=== PATIENT | female | born 1995 | race Caucasian/White ===

== ENCOUNTER → 2018-07-25 15:42 | Outpatient (CLI) | payer BC, SELFPAY ==
[2018-07-25 17:51] LABS: Chlamydia Trachomatis by PCR Negative (Negative); Neisserai gonorrhoeae by PCR Negative (Negative); Probe Check PASS; Sample Adequacy Control PASS; Specimen Processing Control PASS
== END ==
PROVIDERS: Family Provider Preventive Medicine Occupational Medicine; PCP Preventive Medicine Occupational Medicine; Referring Provider Nurse Practitioner Women's Health; Visit Provider Nurse Practitioner Women's Health
DX: Z11.3 Encounter for screening for infections with a predominantly sexual mode of transmission (principal)
CPT/HCPCS: 87491; 87591

== ENCOUNTER 2019-08-19 05:34 | Emergency (ER) | payer BC, SELFPAY ==
[2019-08-19 05:35] VITALS: BP 165/94; PULSE 76; RESP 15; TEMP 36.5; O2SAT 100; BMI 30.1
--- NOTE | 2019-08-19 05:35 | ED.RN ---
CALLED FOR EKG PER RN REQUEST, PULLED OLD EKG FOR
--- NOTE | 2019-08-19 05:46 | EKG12_ITS ---
Test Reason : CP Blood Pressure : / mmHG Vent. Rate : 074 BPM Atrial Rate : 074 BPM P-R Int : 148 ms QRS Dur : 098 ms QT Int : 404 ms P-R-T Axes : 037 051 025 degrees QTc Int : 448 ms Normal sinus rhythm Normal ECG Confirmed by GEOR[place] FERNANDEZ, LION ([id number]), mapping editor IDALMIS HAINES ([id number]) on 08/26/2019 2:02:00 PM Referred By: FIDEL Confirmed By:LION HO MD
--- NOTE | 2019-08-19 05:46 | RAD_ITS ---
STUDY: X-RAY CHEST REASON FOR EXAM: Female, 23 years old. Chest pain TECHNIQUE: PA and lateral chest COMPARISON: 08/27/2017 FINDINGS: The lungs are clear and expanded. There is no demonstrated pleural abnormality. Normal size heart. Normal mediastinum and itzel. Normal visualized pulmonary arteries. Normal visualized aortic arch and descending thoracic aorta. Normal visualized thoracic spine. Normal visualized ribs, clavicles, and shoulders. There is no demonstrated abnormality of the visualized soft tissue structures of the upper abdomen. RAD/Chest PA and Lateral IMPRESSION: Normal x-ray examination of the chest. Electronically Signed: Salvador Vazquez, at 6:09 EST Tel , Service support ,
--- NOTE | 2019-08-19 05:46 | ED.VIS.GEN ---
History of Present Illness Chief Complaint: Chest Pain Narrative: This patient is a 23-year-old female who presents with chest pain. This is been going on about 2 hours. It began while at rest at work. She describes it as both sharp and feeling like something is sitting on her chest. It is in the center of the chest with radiation to her back. No exacerbating or relieving factors. She denies associated symptoms such as dizziness nausea vomiting or shortness of breath. She denies recent travel or surgery. No history of DVT or pulmonary embolism. She is not on control. She is not a smoker. She actually has had multiple prior episodes of similar pain with negative work-ups. Past Medical History - Allergies and Home Meds Allergies/Adverse Reactions: Allergies mupirocin Allergy (Mild, Verified 08/19/19 05:38) unknown OINTMENT FOR IMPETIGO Allergy (Uncoded 08/19/19 05:38) Hives Primary Care Physician: NOT,DEFINED [NON-STAFF] - Past Medical History: None Smoking Status: Former smoker Review of Systems All systems negative except as indicated General: Denies: Fever Cardiovascular: Reports: Chest pain Respiratory: Denies: Dyspnea Gastrointestinal: Denies: Nausea, Vomiting Physical Exam Vital Signs/Narrative: Vital Signs Temp Pulse Resp BP Pulse Ox 08/19/19 05:35 97.7 F L 76 15 165/94 H 100 Inital Vital Signs reviewed: Yes General: Well nourished, Well developed Head: Normocephalic Eyes: EOMI ENT: Moist mucous membranes Neck: Supple Cardiovascular: Regular rate, Regular rhythm, - - Palpable radial pulses Respiratory: No distress, CTA bilaterally Abdomen: Soft, Nontender Extremities: Nontender, No edema Skin: Normal color Neurological: Alert Psychological: Normal affect Diagnostic/Tx/Re-eval Impressions Chest X-Ray 08/19/19 05:46 IMPRESSION: Normal x-ray examination of the chest. Electronically Signed: Salvador Vazquez, at 6:09 EST Tel , Service support , 08/19/19 05:46 Chest PA and Lateral [RAD] Stat Laboratory Results 08/19/19 08/19/19 08/19/19 05:40 05:40 05:40 WBC 10.0 RBC 4.12 L Hgb 12.3 Hct 36.2 L MCV 87.9 MCH 29.9 MCHC 34.0 RDW Std Deviation 41.0 RDW Coeff of Joanie 12.7 Plt Count 349 MPV 10.1 Immature Gran % (Auto) 0.200 Neut % (Auto) 49.2 Lymph % (Auto) 41.0 [place] % (Auto) 7.2 Eos % (Auto) 1.8 Baso % (Auto) 0.6 Absolute Neuts (auto) 4.9 Absolute Lymphs (auto) 4.10 Nucleated RBC % 0 PT 12.8 INR 1.0 D-Dimer Quant (PE/DVT) < 0.27 L Sodium 140 Potassium 3.4 L Chloride 106 Carbon Dioxide 27.0 Anion Gap 7 BUN 14 Creatinine 0.87 Estim Creat Clear Calc 78.86 Est GFR (MDRD) Af Amer 102 Est GFR (MDRD) Non-Af 84 BUN/Creatinine Ratio 16.1 Glucose 91 Calcium 8.9 Troponin I < 0.015 - Medical Decision Making EKG shows normal sinus rhythm at a rate of 74 with no acute ischemic changes. Labs are unremarkable including negative troponin negative d-dimer. Given the patient's history of multiple prior similar episodes as well as unremarkable work-up here I do not believe she has any acute life-threatening pathology. I do believe she can follow-up as an outpatient. She understands to return for new or worsening symptoms and was discharged home. ED Disposition - Plan for ED Patient: Disposition: Home or Assisted Living Diagnosis: Chest pain Instructions: CHEST PAIN, Uncertain Cause Referrals: NOT,DEFINED [NON-STAFF] -
[2019-08-19 05:54] LABS: Absolute Neutrophil Count 4.9 X10^3/uL (2.0-7.7); Basophil# 0.06 X10^3/uL; Basophil% 0.6 % (0-1); Eosinophil# 0.18 X10^3/uL; Eosinophils% 1.8 % (0-5); Hematocrit 36.2 % (37-47); Hemoglobin 12.3 g/dL (12.0-15.0); Mean Corpuscular Hgb 29.9 pg (27.0-32.0); Mean Corpuscular Volume 87.9 fL (81-99); Mean Platelet Vol. 10.1 fl (6.2-12.0); Monocyte# 0.72 X10^3/uL; Monocyte% 7.2 % (0-10); NRBC Flagged by Analyzer 0 % (0-5); Neutrophil # 4.91 X10^3/uL (2.7-7.7); Neutrophil % 49.2 % (47-70); Platelet Count 349 K/mm3 (150-450); RBC Distribution Width CV 12.7 % (11.6-14.6); Red Blood Count 4.12 M/mm3 (4.2-5.4)
[2019-08-19 05:59] LABS: Prothrombin Time (Protime)PT. 12.8 SECONDS (11.7-14.9)
[2019-08-19 06:03] LABS: D-Dimer Quantitative (DVT/PE) < 0.27 FEU/ug/m (0.27-0.49)
[2019-08-19 06:06] LABS: Anion Gap 7 (5-15); BUN 14 mg/dL (7-18); BUN/Creat Ratio 16.1 RATIO (10-20); Calcium,Total 8.9 mg/dL (8.5-10.1); Chloride 106 mmol/L (98-107); Creatinine, Serum 0.87 mg/dL (0.55-1.02); EST Glomerular Filtration Rate 84 mL/min (>60); Est Glom Filt Rate - Afr Amer 102 mL/min (>60); Estimated Creatinine Clearance 78.86 ml/min; Glucose 91 mg/dL (74-106); Potassium 3.4 mmol/L (3.5-5.1); Sodium Level 140 mmol/L (136-145)
[2019-08-19 06:51] VITALS: BP 113/71; PULSE 50; RESP 14; O2SAT 100
== END 2019-08-19 06:52 | disposition home or self-care (01) ==
PROVIDERS: Emergency Provider Emergency Medicine
DX: R07.9 Chest pain, unspecified (principal); Z87.891 Personal history of nicotine dependence
CPT/HCPCS: 71046; 80048; 84484; 85025; 85379; 85610; 93005; 99284; A4216

== ENCOUNTER 2020-05-28 00:45 | Emergency (ER) | payer BC, SELFPAY ==
[2020-05-28 00:50] VITALS: BP 135/90; PULSE 108; RESP 20; TEMP 37; O2SAT 100; BMI 30.2
--- NOTE | 2020-05-28 01:34 | EKG12_ITS ---
Test Reason : CP Blood Pressure : / mmHG Vent. Rate : 103 BPM Atrial Rate : 103 BPM P-R Int : 192 ms QRS Dur : 090 ms QT Int : 344 ms P-R-T Axes : 045 048 016 degrees QTc Int : 450 ms Sinus tachycardia Otherwise normal ECG Confirmed by MATHEW HURTADO ([id number]), avid editor IDALMIS HAINES ([id number]) on 05/31/2020 2:09:56 PM Referred By: CG Confirmed By:MATHEW HURTADO
[2020-05-28 01:40] LABS: Absolute Lymphocyte Count 3.91 X10^3/uL (0.83-4.51); Absolute Neutrophil Count 6.5 X10^3/uL (2.0-7.7); Basophil# 0.06 X10^3/uL; Basophil% 0.5 % (0-1); Eosinophil# 0.18 X10^3/uL; Eosinophils% 1.6 % (0-5); Hematocrit 38.4 % (37-47); Hemoglobin 13.1 g/dL (12.0-15.0); Lymphocyte # 3.91 X10^3/ul (4.0); Mean Corp Hgb Conc 34.1 g/dL (32-36); Mean Corpuscular Hgb 30.6 pg (27.0-32.0); Mean Corpuscular Volume 89.7 fL (81-99); Mean Platelet Vol. 10.1 fl (6.2-12.0); Monocyte# 0.79 X10^3/uL; Monocyte% 6.9 % (0-10); NRBC Flagged by Analyzer 0 % (0-5); Neutrophil # 6.52 X10^3/uL (2.7-7.7); Neutrophil % 56.7 % (47-70); Platelet Count 322 K/mm3 (150-450); RBC Distribution Width CV 12.8 % (11.6-14.6); RBC Distribution Width SD 41.7 fl (35.1-43.9); Red Blood Count 4.28 M/mm3 (4.2-5.4); White Blood Count 11.5 K/mm3 (4.4-11.0)
[2020-05-28] MEDS: 0.9% Normal Saline 1,000 ML 1000 ML IV (01:44)
[2020-05-28 01:49] LABS: D-Dimer Quantitative (DVT/PE) 0.33 FEU/ug/m (0.27-0.49)
[2020-05-28 01:52] VITALS: BP 118/75; PULSE 90; RESP 26; O2SAT 100
[2020-05-28 01:55] LABS: Anion Gap 5 (5-15); BUN 14 mg/dL (7-18); BUN/Creat Ratio 15.1 RATIO (10-20); Calcium,Total 8.9 mg/dL (8.5-10.1); Chloride 110 mmol/L (98-107); Creatinine, Serum 0.93 mg/dL (0.55-1.02); EST Glomerular Filtration Rate 78 mL/min (>60); Est Glom Filt Rate - Afr Amer 94 mL/min (>60); Estimated Creatinine Clearance 73.14 ml/min; Glucose 94 mg/dL (74-106); Potassium 3.3 mmol/L (3.5-5.1); Sodium Level 140 mmol/L (136-145)
--- NOTE | 2020-05-28 02:00 | RAD_ITS ---
STUDY: X-RAY CHEST REASON FOR EXAM: Female, 24 years old patient with chest pain and shortness of breath. TECHNIQUE: Single AP portable view of the chest. COMPARISON: 08/19/2019. FINDINGS: Cardiac monitoring leads are present. The lungs are clear and expanded. There is no demonstrated pleural abnormality. Normal size heart. Normal mediastinum and itzel. Normal visualized pulmonary arteries. Normal visualized aortic arch and descending thoracic aorta. Normal visualized thoracic spine. Normal visualized ribs, clavicles, and shoulders. There is no demonstrated abnormality of the visualized soft tissue structures of the upper abdomen. RAD/Chest 1 View (Portable) IMPRESSION: No radiographic evidence of acute cardiopulmonary disease. Electronically Signed: Eleonora Brandt MD at 2:17 EDT , Service support ,
--- NOTE | 2020-05-28 03:03 | ED.VIS.CHEST ---
History of Present Illness Chief Complaint: Chest Pain Informant: Patient Onset: Today Timing: Intermittent Quality: Sharp, Stabbing Location: Left Chest Worsened By: Nothing Narrative: Patient is a 24-year-old female that is currently being evaluated for episodes of lightheadedness presenting after episode of chest pain. Patient states she was at work when she was working at 2 different stations which is not normal for her and more stressful than normal. Suddenly developed an episode of sharp chest pain on the left side of her chest. It lasted for couple minutes and then resolved. During the episode she had associated shortness of breath. She states she had prior episodes in the past of the last one was about 3 to 4 years ago. At that time she was told she had she had a UTI. Currently denies any associated urinary symptoms. She states she is currently being evaluated by her PCP for episodes of lightheadedness/dizzy spells. Patient recently had a Holter monitor which she thinks was normal but does not recall the results. She was placed on Midodrine but it caused nausea and vomiting so she was taken off of it yesterday. Patient notes she was having some loose bowel movements today denies any black or blood in her stool. She denies any associated dysuria or urinary symptoms. Patient denies any swelling of her legs, history of DVT or PE. She states she does not think she is . Her last menstrual period was approximately 1 month ago. Prior Similar Symptoms: Yes CVD Risk Factors: Negative for: Hypertension, Diabetes, Hypercholesterolemia, Family History 1' </=55, Smoking PE Risk Factors: Negative for: Recent Travel/Surgery, Recenet Immobilization, Prior DVT or PE, Cancer, OCP + Smoking + >/=35 Past Medical History - Allergies and Home Meds Allergies/Adverse Reactions: Allergies mupirocin Allergy (Mild, Verified 05/28/20 00:47) unknown OINTMENT FOR IMPETIGO Allergy (Uncoded 05/28/20 00:47) Hives Primary Care Physician: Adrian Miranda DO [Primary Care Provider] - Past Medical History: None Surgical History: no surgical history Smoking Status: Never smoker Alcohol: None Drugs: None Review of Systems General: Denies: Chills, Fever, Sweats Eyes: Denies: Visual changes - bilaterally, Diplopia ENT: Denies: Rhinorrhea, Sore throat Cardiovascular: Reports: Chest pain. Denies: Palpitations Respiratory: Reports: Dyspnea. Denies: Cough, Dyspnea on exertion Gastrointestinal: Denies: Abdominal pain, Nausea, Vomiting, Diarrhea, Melena, Hematochezia Genitourinary: Reports: Frequency. Denies: Dysuria, Hematuria Musculoskeletal: Denies: Back pain, Extremity Pain Skin: Denies: Rash, Wounds Neurological: Denies: Headache, Weakness, Numbness Physical Exam Vital Signs/Narrative: Vital Signs Temp Pulse Resp BP Pulse Ox 05/28/20 01:52 90 26 H 118/75 100 05/28/20 00:50 98.6 F 108 H 20 H 135/90 H 100 Inital Vital Signs reviewed: Yes General: Well nourished, Well developed, No Acute Distress Head: Normocephalic, Atraumatic Eyes: Perrl, EOMI ENT: Moist mucous membranes, No rhinorrhea Neck: Supple, Nontender, No JVD Cardiovascular: Regular rate, Regular rhythm, No murmurs Respiratory: No distress, CTA bilaterally, Chest nontender. Negative for: Diminished, Decreased Air Movement, Chest tenderness Abdomen: Soft, Nontender, Nondistended, Normal bowel sounds. Negative for: Guarding, Rebound tenderness Back: Nontender, Normal Inspection. Negative for: CVA tenderness Extremities: Nontender, No edema Skin: Normal color, No rash Neurological: Alert, Oriented x3, Cranial nerves II-XII grossly intact, Normal Strength, Normal Sensation Psychological: Normal affect, Normal Mood Diagnostic/Tx/Re-eval Chest X-Ray - ED: 1 View, Read by ED Physician, Read by Radiologist, No Acute Disease Clinical Impression(s) from Imaging Studies Chest X-Ray 05/28/20 02:00 IMPRESSION: No radiographic evidence of acute cardiopulmonary disease. Electronically Signed: Eleonora Brandt MD at 2:17 EDT , Service support , Laboratory Data 05/28/20 05/28/20 05/28/20 01:04 01:04 01:04 WBC 11.5 H RBC 4.28 Hgb 13.1 Hct 38.4 MCV 89.7 MCH 30.6 MCHC 34.1 RDW Std Deviation 41.7 RDW Coeff of Joanie 12.8 Plt Count 322 MPV 10.1 Immature Gran % (Auto) 0.300 Neut % (Auto) 56.7 Lymph % (Auto) 34.0 [place] % (Auto) 6.9 Eos % (Auto) 1.6 Baso % (Auto) 0.5 Absolute Neuts (auto) 6.5 Absolute Lymphs (auto) 3.91 Nucleated RBC % 0 D-Dimer Quant (PE/DVT) 0.33 Sodium 140 Potassium 3.3 L Chloride 110 H Carbon Dioxide 25.0 Anion Gap 5 BUN 14 Creatinine 0.93 Estim Creat Clear Calc 73.14 Est GFR (MDRD) Af Amer 94 Est GFR (MDRD) Non-Af 78 BUN/Creatinine Ratio 15.1 Glucose 94 Calcium 8.9 Magnesium 2.0 Troponin I < 0.015 - Rhythm Strip Rhythm Strip: Sinus Tach Rate: 103 Ectopy: None - EKG Initial EKG Interpretation: Sinus Tachycardia, - - Sinus tachycardia at a rate of 103 Normal axis Normal intervals Normal ST segments Nonspecific T wave inversion in lead III JARET Risk: No Positive JARET Elements Score: 0 - Medical Decision Making Patient is evaluated after a transient episode of left-sided chest pain. She has associated shortness of breath with it. Patient symptom-free upon arrival to the emergency room. Patient peers nontoxic in no acute distress. Her vital signs are significant for mild tachycardia. Patient has no risk factors for DVT or PE. D-dimer obtained which is negative. I feel like she is low risk per Wells criteria and this effectively rules out a PE. Will remainder of work-up is largely negative including chest x-ray and BMP. Of note, I did order a urinalysis and urine but later in her ED course. Patient do not want a stay to give an urine sample. I did discuss with patient that she is low risk per heart score and has a 2% risk of ACS over the next 30 days. Patient does not want to stay for delta troponin. Patient's presentation is very atypical for cardiac chest pain and she is already a under evaluation for lightheaded episodes by her primary care doctor. She recently had a 48-hour Holter monitor and is working on getting an echocardiogram scheduled. Believe patient is a good candidate for outpatient follow-up. The exact cause of her episode of chest pain is not clear today however. Patient is counseled on signs and symptoms requiring return to the emergency room. Patient verbalizes agreement and understand this plan. Patient discharged home in stable and improved condition. ED Disposition - Plan for ED Patient: Disposition: Home or Assisted Living Diagnosis: Atypical chest pain Instructions: ED Chest Pain Atypical Unkn Cause Referrals: Adrian Miranda DO [Primary Care Provider] -
[2020-05-28 03:26] VITALS: BP 127/56; PULSE 81; RESP 18; O2SAT 96
--- NOTE | 2020-05-28 03:27 | ED.RN ---
PT WAS VERBALLY ABRASIVE WHEN ADVISED ABOUT THE NEED FOR URINE,WELL THE LADY SAID I WAS GOING HOME AND I'M READY. DID ADVISE THE DOCTOR OF THE ABOVE INFORMATION. SHE STATED THAT'S FINE SHE REFUSED. WAS DOING HER DISCHARGE AND ATTEMPTING TO GO OVER HER DISCHARGE PAPERS AND SHE SAID,'I ALREADY KNOW! PAPERS HANDED TO PT.
== END 2020-05-28 03:29 | disposition home or self-care (01) ==
PROVIDERS: Emergency Provider Emergency Medicine; PCP Student in an Organized Health Care Education/Training Program
DX: R07.89 Other chest pain (principal); R06.02 Shortness of breath; R42 Dizziness and giddiness; R35.0 Frequency of micturition
CPT/HCPCS: 71045; 80048; 83735; 84484; 85025; 85379; 93005; 96360; 96361; 99285; J7030; A4216

== ENCOUNTER 2020-06-10 23:36 | Emergency (ER) | payer BC, SELFPAY ==
[2020-06-10 23:37] VITALS: BP 138/77; PULSE 90; RESP 18; TEMP 36.2; O2SAT 99; BMI 29.2
[2020-06-11 00:02] VITALS: BP 119/60; PULSE 75; RESP 18; O2SAT 99
--- NOTE | 2020-06-11 00:19 | EKG12_ITS ---
Test Reason : DYSRHYTHMIA Blood Pressure : / mmHG Vent. Rate : 072 BPM Atrial Rate : 072 BPM P-R Int : 170 ms QRS Dur : 100 ms QT Int : 404 ms P-R-T Axes : 039 047 031 degrees QTc Int : 442 ms Normal sinus rhythm Normal ECG Confirmed by ROLANDO FERNANDEZ, JONG ([id number]), video tape editor VAL CATES ([id number]) on 06/15/2020 7:55:36 AM Referred By: BLAIRE Confirmed By:MICHAEL MARSHALL MD
--- NOTE | 2020-06-11 00:26 | ED.DCSUM_ITS ---
History of Present Illness Chief Complaint: Hypertension Informant: Patient Onset: Today Narrative: Patient came from work due to feeling dizzy lightheaded with elevated blood pressure. She has been at work for 4 hours she states she stands using the stapler, felt lightheaded, she checked her blood pressure was 144/89. She does take metoprolol for blood pressure. She denies chest pains or abdominal pain. No recent illness. No recent vomiting or diarrhea. No urinary symptoms. History of tubal ligation. Similar event 2 weeks ago seen in the ED. She states previously has had multiple episodes being worked up by her PCP. She has had a Holter monitor in the past along with echocardiogram. She states there is some valve regurgitations. She denies any syncopal episodes. Prior similar symptoms: Yes Past Medical History - Allergies and Home Meds Allergies/Adverse Reactions: Allergies mupirocin Allergy (Mild, Verified 06/10/20 23:39) unknown OINTMENT FOR IMPETIGO Allergy (Uncoded 06/10/20 23:39) Hives Primary Care Physician: Adrian Miranda DO [Primary Care Provider] - Past Medical History: - - Hypertension, anemia Surgical History: no surgical history Smoking Status: Former smoker Review of Systems General: Denies: Chills, Fever, Sweats Eyes: Denies: Visual changes - bilaterally, Diplopia ENT: Denies: Rhinorrhea, Sore throat Cardiovascular: Denies: Chest pain, Palpitations Respiratory: Denies: Dyspnea, Cough, Dyspnea on exertion Gastrointestinal: Denies: Abdominal pain, Nausea, Vomiting, Diarrhea, Melena, Hematochezia Genitourinary: Denies: Dysuria, Hematuria, Frequency Musculoskeletal: Denies: Back pain, Extremity Pain Skin: Denies: Rash, Wounds Neurological: Denies: Headache, Weakness, Numbness Physical Exam Vital Signs/Narrative: Vital Signs Temp Pulse Resp BP Pulse Ox 06/11/20 00:02 75 18 119/60 99 06/10/20 23:37 97.2 F L 90 18 138/77 H 99 Inital Vital Signs reviewed: Yes General: Well nourished, Well developed, No Acute Distress Head: Normocephalic, Atraumatic Eyes: Perrl, EOMI ENT: Moist mucous membranes, No rhinorrhea Neck: Supple, Nontender Cardiovascular: Regular rate, Regular rhythm, No murmurs Respiratory: No distress, CTA bilaterally, Chest nontender Abdomen: Soft, Nontender, Nondistended, Normal bowel sounds Back: Nontender, Normal Inspection Extremities: Nontender, No edema Skin: Normal color, No rash Neurological: Alert, Oriented x3, Cranial nerves II-XII grossly intact, Normal Strength, Normal Sensation Psychological: Normal affect, Normal Mood Diagnostic/Tx/Re-eval Abnormal Lab Results 06/11/20 06/11/20 06/11/20 00:35 00:35 00:35 WBC 9.9 RBC 4.06 L Hgb 12.4 Hct 36.5 L MCV 89.9 MCH 30.5 MCHC 34.0 RDW Std Deviation 41.0 RDW Coeff of Joanie 12.5 Plt Count 329 MPV 9.8 Immature Gran % (Auto) 0.200 Neut % (Auto) 65.4 Lymph % (Auto) 26.5 [place] % (Auto) 5.9 Eos % (Auto) 1.6 Baso % (Auto) 0.4 Absolute Neuts (auto) 6.5 Absolute Lymphs (auto) 2.63 Nucleated RBC % 0 Sodium 141 Potassium 3.5 Chloride 109 H Carbon Dioxide 27.0 Anion Gap 5 BUN 11 Creatinine 0.82 Estim Creat Clear Calc 82.95 Est GFR (MDRD) Af Amer 108 Est GFR (MDRD) Non-Af 90 BUN/Creatinine Ratio 13.4 Glucose 88 Calcium 8.8 Serum , Qual NEGATIVE - EKG Initial EKG Interpretation: Sinus Rhythm - Sinus rate of 72, no ST changes. Isolated T wave in leads III, nonspecific. QTc 442. - Medical Decision Making Patient EKG labs are stable. Her vitals remained stable blood pressure was stable in the ED. Evaluation of records she had chest symptoms her last visit evaluated which was negative including d-dimer. She has no PE risk factors. Since her last visit in the ED she is seen her doctor with the Holter and echocardiogram. Discussed followed up again for further testing or referral as needed. To continue oral hydration. She will return if any worsening symptoms. All questions were answered. ED Disposition - Plan for ED Patient: Disposition: Home or Assisted Living Diagnosis: Near syncope Instructions: ED Near-Fainting Uncertain Cause Referrals: Adrian Miranda DO [Primary Care Provider] - 3-5 Days
[2020-06-11 00:41] LABS: Absolute Lymphocyte Count 2.63 X10^3/uL (0.83-4.51); Absolute Neutrophil Count 6.5 X10^3/uL (2.0-7.7); Basophil# 0.04 X10^3/uL; Basophil% 0.4 % (0-1); Eosinophil# 0.16 X10^3/uL; Eosinophils% 1.6 % (0-5); Hematocrit 36.5 % (37-47); Hemoglobin 12.4 g/dL (12.0-15.0); Lymphocyte # 2.63 X10^3/ul (4.0); Lymphocyte % 26.5 % (19-41); Mean Corpuscular Hgb 30.5 pg (27.0-32.0); Mean Corpuscular Volume 89.9 fL (81-99); Mean Platelet Vol. 9.8 fl (6.2-12.0); Monocyte# 0.58 X10^3/uL; Monocyte% 5.9 % (0-10); NRBC Flagged by Analyzer 0 % (0-5); Neutrophil # 6.48 X10^3/uL (2.7-7.7); Neutrophil % 65.4 % (47-70); Platelet Count 329 K/mm3 (150-450); RBC Distribution Width CV 12.5 % (11.6-14.6); Red Blood Count 4.06 M/mm3 (4.2-5.4); White Blood Count 9.9 K/mm3 (4.4-11.0)
[2020-06-11 00:51] LABS: Internal QC Validated? YES +Cl - CLEAR BKGD; Pregnancy, Serum, hCG Quali. NEGATIVE Negative
[2020-06-11 00:55] LABS: Anion Gap 5 (5-15); BUN 11 mg/dL (7-18); BUN/Creat Ratio 13.4 RATIO (10-20); Calcium,Total 8.8 mg/dL (8.5-10.1); Chloride 109 mmol/L (98-107); Creatinine, Serum 0.82 mg/dL (0.55-1.02); EST Glomerular Filtration Rate 90 mL/min (>60); Est Glom Filt Rate - Afr Amer 108 mL/min (>60); Estimated Creatinine Clearance 82.95 ml/min; Glucose 88 mg/dL (74-106); Potassium 3.5 mmol/L (3.5-5.1); Sodium Level 141 mmol/L (136-145)
[2020-06-11 01:22] VITALS: BP 115/75; PULSE 78; RESP 16; O2SAT 96
== END 2020-06-11 01:27 | disposition home or self-care (01) ==
PROVIDERS: Emergency Provider Emergency Medicine; PCP Student in an Organized Health Care Education/Training Program
DX: R55 Syncope and collapse (principal); I10 Essential (primary) hypertension; D64.9 Anemia, unspecified; Z79.899 Other long term (current) drug therapy; Z87.891 Personal history of nicotine dependence
CPT/HCPCS: 80048; 84703; 85025; 93005; 96360; 99285; J7030; A4216

== ENCOUNTER 2024-12-17 05:34 | Day surgery (SDC) | payer OTHER, SELFPAY ==
--- NOTE | 2024-12-15 10:56 | PAT.ANESEVAL ---
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 When Was Last Pacemaker Check QUESTION #4 FULL TEXT: You/Your Family Experience fever (hyperthermia) with Anesthesia Last Oral Intake Last Oral intake: Last Oral Intake NPO since Meds taken in AM with sips of water? Meds patient instructed to take am of surgery PONV PONV - surveillance observer: PONV - surveillance observer Female Yes 12/15/24 09:33 HX of Motion Sickness No 12/15/24 09:33 HX of N/V After Surgery Yes 12/15/24 09:33 Non-Smoker Yes 12/15/24 09:33 Duration of Surgery greater No 12/15/24 09:33 than 60 minutes Number of Risk Factors 3 12/15/24 09:33 PONV Score Moderate Risk 12/15/24 09:33 Respiratory Assessment Respiratory Assessment - surveillance observer: Respiratory Tract Infection Hx - surveillance observer Hx Respiratory Tract Infection No 12/15/24 09:33 STOP Sleep Apnea STOP Sleep Apnea - surveillance observer: STOP Sleep Apnea - surveillance observer Hx Hypertension No 12/15/24 09:33 Hx Sleep Apnea No 12/15/24 09:33 CPAP BIPAP Do you snore loudly (louder No 12/15/24 09:33 than talking or can be heard Do you often feel tired/ No 12/15/24 09:33 fatigued/ sleepy during daytime? Has anyone observed you stop No 12/15/24 09:33 breathing during sleep? STOP Results Negative 12/15/24 09:33 QUESTION #5 FULL TEXT : Do you snore loudly (louder than talking or can be heard through closed doors)? 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 Specify any problems Hx of Preganancy in last 3 No 12/15/24 09:33 Months Nurse Filling Out Transfusion VLEHMAN 12/15/24 09:33 & Questions: Date: 12/15/24 12/15/24 09:33 Time: 09:41 12/15/24 09:33 Patient unable to answer at this time (ie. confused, unrespo /Reproduction History /Reproductive History - surveillance observer: /Reproductive Hx- surveillance observer Hx Now No 12/15/24 09:33 Gestational Age (in weeks): EDC: Hx Hx Para Hx Section SAB No 07/25/18 09:54 [facility] Medical History (Updated 12/15/24 @ 09:40 by Nadya Arenas) Low iron Fatty liver History of hiatal hernia History of ulceration Gastric reflux Former smoker History of stress test History of echocardiogram Mitral regurgitation History of irregular heartbeat Menorrhagia Irregular periods Anemia Home Medications ?Medication ?Instructions ?Recorded ?Last Taken ?Type loratadine 10 mg capsule 10 mg PO DAILY 05/28/20 Unknown History famotidine 40 mg tablet 40 mg PO BID 10/14/24 Unknown History linaclotide 72 mcg capsule 72 mcg PO QAM #60 caps 10/14/24 Unknown Rx (Linzess) omeprazole 40 mg capsule,delayed 40 mg PO BID 10/14/24 Unknown History release Lactobacillus acidophilus 10 100 mmu cells PO BID 12/15/24 Unknown History billion cell capsule (Probiotic) albuterol sulfate 90 mcg/actuation 2 puff inhalation Q4H PRN PRN 12/15/24 Unknown History aerosol inhaler wheezing sodium chloride 1,000 mg soluble 1,000 mg PO BID 12/15/24 Unknown History tablet Allergy/AdvReac Type Severity Reaction Status Date / Time mupirocin Allergy Mild Hives Verified 02/20/23 13:35 Family History Other CVA (cerebral vascular accident) Cancer Myocardial infarction Surgical History (Updated 12/15/24 @ 09:33 by Nadya Arenas) History of cholecystectomy Social History (Updated 07/25/18 @ 11:10 by Kimberly Zepeda NP, [employer]TER[employer]) adopted: No household members: family housing: house number of children: 0 current occupational status: employed current occupation: [employer] current occupational exposures/hazards: No pets and animals: No history of recent travel: No Smoking Status: Former smoker second hand exposure: Yes alcohol intake: former substance use type: does not use seatbelt use: always do you feel safe at home: Yes Audit: Pertinent Findings Pertinent Findings EKG Perinent findings: 06/11/2020 normal sinus rhythm 72 bpm Echo (EF%) pertinent findings: 10/03/2024 EF 55 to 60%. PA pressure 37 Recommendation Anesthesia Recommendation Anesthesia recommendation: OPTIMIZED for anesthesia
[2024-12-17] VITALS (8 sets, daily range): BP systolic 89–119; BP diastolic 37–69; PULSE 60–83; RESP 16–18; TEMP 36.3–36.8; O2SAT 96–99; BMI 34.2
[2024-12-17 06:10] LABS: Internal QC Validated? YES +Cl - CLEAR BKGD; Pregnancy, Urine Negative Negative
--- NOTE | 2024-12-17 06:40 | PCM.PRE.AN2 ---
ASA Classification* ASA Classification ASA Classification: 2 Assessment & Plan Anesthesia* Anesthesia Assessment Anesthesia Assessment: Discussed sedation and/or anesthesia options, risks, benefits, and alternatives with patient/parents/legal guardian/POA. Questions invited. The patient/parents/legal guardian/POA seems to understand and agrees to proceed with anesthesia plan. Reviewed the physical assessment, medical history, allergy history and patient home medications list prior to surgery/procedure/anesthetic and documented any changes. Performed airway and anesthesia risk assessments. Anesthesia Type Anesthesia Type: MAC Anesthesia Focused Assessment* Temperature: 97.3 F Pulse Rate: 72 Blood Pressure: 117/64 Respiratory Rate: 18 Pulse Ox: 99 Airway Assessment Mouth opens: >3 cm Mallampati Score: II Focused Labs Anesthesia Preop lab: CBC WBC 9.9 K/mm3 (4.4-11.0) 06/11/20 00:35 06/11/20 RBC 4.06 M/mm3 (4.2-5.4) L 06/11/20 00:35 06/11/20 Hgb 12.4 g/dL (12.0-15.0) 06/11/20 00:35 06/11/20 Hct 36.5 % (37-47) L 06/11/20 00:35 06/11/20 Plt Count 329 K/mm3 (150-450) 06/11/20 00:35 06/11/20 CHEMISTRY Potassium 3.5 mmol/L (3.5-5.1) 06/11/20 00:35 06/11/20 Sodium 141 mmol/L (136-145) 06/11/20 00:35 06/11/20 Magnesium 2.0 mg/dL (1.6-2.6) 05/28/20 01:04 05/28/20 BUN 11 mg/dL (7-18) 06/11/20 00:35 06/11/20 Creatinine 0.82 mg/dL (0.55-1.02) 06/11/20 00:35 06/11/20 Glucose 88 mg/dL (74-106) 06/11/20 00:35 06/11/20 COAG PT 12.8 SECONDS (11.7-14.9) 08/19/19 05:40 11/05/19 Urine Test Negative Negative 12/17/24 05:55 12/17/24 Tst Clinic Negative 07/25/18 10:01 07/25/18 Pre-Assessment Diagnosis/Proposed Procedure Planned Operative Procedure(s): COLONOSCOPY Anesthesia History Anesthesia History - buffer automatic: Anesthesia History - buffer automatic Hx Hospitalization Yes: N/V AFTER 12/15/24 09:33 CHOLECYSTECTOMY Any Problems With Anesthesia No 12/15/24 09:33 Cholinesterase deficiency No 12/15/24 09:33 You/Your Family Experience No 12/15/24 09:33 fever (hyperthermia) with Relationship Recent Exposure to Contagious No 12/17/24 06:11 Disease Does patient have nerve No 12/15/24 09:33 stimulator Patient instructed to have device shut off --Does patient have Pacemaker No 12/17/24 06:11 or ICD? When Was Last Pacemaker Check QUESTION #4 FULL TEXT: You/Your Family Experience fever (hyperthermia) with Anesthesia Last Oral Intake Last Oral intake: Last Oral Intake NPO since 00:00 12/17/24 06:11 Meds taken in AM with sips of water? Meds patient instructed to take am of surgery PONV PONV - buffer automatic: PONV - buffer automatic Female Yes 12/15/24 09:33 HX of Motion Sickness No 12/15/24 09:33 HX of N/V After Surgery Yes 12/15/24 09:33 Non-Smoker Yes 12/15/24 09:33 Duration of Surgery greater No 12/15/24 09:33 than 60 minutes Number of Risk Factors 3 12/15/24 09:33 PONV Score Moderate Risk 12/15/24 09:33 Height & Weight Height & Weight: Anesthesia: Height & Weight Height 5 ft 2 in 12/17/24 06:11 Weight: 85 kg 12/17/24 06:11 Body Mass Index (BMI) 34.2 12/17/24 06:11 Respiratory Assessment Respiratory Assessment - buffer automatic: Respiratory Tract Infection Hx - buffer automatic Hx Respiratory Tract Infection No 12/15/24 09:33 STOP Sleep Apnea STOP Sleep Apnea - buffer automatic: STOP Sleep Apnea - buffer automatic Hx Hypertension No 12/15/24 09:33 Hx Sleep Apnea No 12/15/24 09:33 CPAP BIPAP Do you snore loudly (louder No 12/15/24 09:33 than talking or can be heard Do you often feel tired/ No 12/15/24 09:33 fatigued/ sleepy during daytime? Has anyone observed you stop No 12/15/24 09:33 breathing during sleep? STOP Results Negative 12/15/24 09:33 QUESTION #5 FULL TEXT : Do you snore loudly (louder than talking or can be heard through closed doors)? 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 Specify any problems Hx of Preganancy in last 3 No 12/15/24 09:33 Months Nurse Filling Out Transfusion VLEHMAN 12/15/24 09:33 & Questions: Date: 12/15/24 12/15/24 09:33 Time: 09:41 12/15/24 09:33 Patient unable to answer at this time (ie. confused, unrespo /Reproduction History /Reproductive History - buffer automatic: /Reproductive Hx- buffer automatic Hx Now No 12/15/24 09:33 Gestational Age (in weeks): EDC: Hx Hx Para Hx Section SAB No 07/25/18 09:54 PFSH Medical History Low iron Fatty liver History of hiatal hernia History of ulceration Gastric reflux Former smoker History of stress test History of echocardiogram Mitral regurgitation History of irregular heartbeat Menorrhagia Irregular periods Anemia Home Medications ?Medication ?Instructions ?Recorded ?Last Taken ?Type loratadine 10 mg capsule 10 mg PO DAILY 05/28/20 12/15/24 History famotidine 40 mg tablet 40 mg PO BID 10/14/24 12/15/24 History linaclotide 72 mcg capsule 72 mcg PO QAM #60 caps 10/14/24 12/15/24 Rx (Linzess) omeprazole 40 mg capsule,delayed 40 mg PO BID 10/14/24 12/15/24 History release Lactobacillus acidophilus 10 100 mmu cells PO BID 12/15/24 12/15/24 History billion cell capsule (Probiotic) albuterol sulfate 90 mcg/actuation 2 puff inhalation Q4H PRN PRN 12/15/24 Unknown History aerosol inhaler wheezing bisacodyl 5 mg tablet,delayed 20 mg (4 x 5 mg) PO ONCE #4 tabs 12/15/24 12/16/24 Rx release (Dulcolax (bisacodyl)) polyethylene glycol 3350 17 238 g PO ONCE #238 grams 12/15/24 12/16/24 Rx gram/dose oral powder sodium chloride 1,000 mg soluble 1,000 mg PO BID 12/15/24 12/15/24 History tablet Allergy/AdvReac Type Severity Reaction Status Date / Time mupirocin Allergy Mild Hives Verified 12/17/24 06:08 Family History Other CVA (cerebral vascular accident) Cancer Myocardial infarction Surgical History History of cholecystectomy Social History adopted: No household members: family housing: house number of children: 0 current occupational status: employed current occupation: [employer]- [employer] current occupational exposures/hazards: No pets and animals: No history of recent travel: No Smoking Status: Former smoker second hand exposure: Yes alcohol intake: former substance use type: does not use seatbelt use: always do you feel safe at home: Yes Review of Systems (Anesthesia) ROS Narrative System reviewed and no additional complaints, except as documented.
--- NOTE | 2024-12-17 07:00 | COLBX_PTH ---
PATIENT: SAMANTHA JAMA LOC: EN U#:[id number] AGE/SX: 29/F ROOM: RE12/17/[address]: Dr. Andre Zhao DO : 1995 BED: DIS: 12/17/2024 SPEC #: [id number] RECD: 12/17/24 09:17 STATUS: ANTONY SEGUNDO #: [id number] VENANCIO: 12/17/24 07:[address]: Andre Zhao DEPT: SURGICAL PATHOLOGY RECD BY: Silvana Morales ENTERED: 12/17/24 09:57 SP TYPE: COLON BX OTHR DR: Dr. Adrian Miranda DO Tissues: A - Cecum, NOS B - Ileum, NOS C - COLON BIOPSY Procedures: Surgery Specimen Level IV HEADER OPERATION: Colonoscopy and polypectomy and biopsy PRE-OP DIAGNOSIS: Abdominal pain, abnormal CT scan TISSUE SUBMITTED: A- Cecal polyp, B- Terminal ileum biopsy, C- Random colonic biopsies MICROSCOPIC DIAGNOSIS A. 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 B. Terminal ileum, biopsy: * No specific pathologic change. C. Colon, random, biopsy: * No specific pathologic change. * Histologic features of microscopic colitis are not observed. MICROSCOPIC DESCRIPTION Slides are reviewed. GROSS DESCRIPTION A. Received in fixative is one container labeled with the patient's name and designated Cecal polyp. The specimen consists of one irregular fragment of light vasquez soft tissue that measures 0.4 x 0.3 x 0.1 cm. The specimen is totally submitted in one cassette. B. Received in fixative is one container labeled with the patient's name and designated Terminal ileum biopsy. The specimen consists of two irregular fragments of light vasquez soft tissue that in aggregate measure 0.5 x 0.3 x 0.1 cm. The specimen is totally submitted in one cassette. C. Received in fixative is one container labeled with the patient's name and designated Random colonic biopsy. The specimen consists of multiple irregular fragments of light vasquez soft tissue that in aggregate measure 1.2 x 0.7 x 0.1 cm. The specimen is totally submitted in one cassette. MS/mr 12/17/2024 CPT:02848v1
--- NOTE | 2024-12-17 07:03 | PCM.HP.STD ---
HPI - General General Date of Admission: 12/17/24 Date of Service: 12/17/24 Chief Complaint: abdominal pain and constipation HPI Narrative SAMANTHA JAMA, is a 29 F who presents for the evaluation of abdominal pain and constipation [facility] establishment 10.14.24; Pt has a long hx of GI issues with GERD starting in her teens. SHe underwent EGD in February 2023 and she tells me she had an ulcer. She takes omeprazole and famotidine daily. Her GERD is well controlled at this point. She is now having issues with diffuse abd pain and constipation. SHe had her gallbladder removed in May of 2024 and this did not help with her pain. Her PCP ordered a CT which showed possible thickening of the colon so she was referred here to use. She has a hx of constipation and is currently having a daily bm that is small and does not feel complete. She will take miralax as needed which is sometimes helpful. CT abd/pelvis 09.09.24; apparent wall thickening of the lower aspect of the right colon and may relate to underdistention. [facility] Medical History Low iron Fatty liver History of hiatal hernia History of ulceration Gastric reflux Former smoker History of stress test History of echocardiogram Mitral regurgitation History of irregular heartbeat Menorrhagia Irregular periods Anemia Home Medications ?Medication ?Instructions ?Recorded ?Last Taken ?Type loratadine 10 mg capsule 10 mg PO DAILY 05/28/20 12/15/24 History famotidine 40 mg tablet 40 mg PO BID 10/14/24 12/15/24 History linaclotide 72 mcg capsule 72 mcg PO QAM #60 caps 10/14/24 12/15/24 Rx (Linzess) omeprazole 40 mg capsule,delayed 40 mg PO BID 10/14/24 12/15/24 History release Lactobacillus acidophilus 10 100 mmu cells PO BID 12/15/24 12/15/24 History billion cell capsule (Probiotic) albuterol sulfate 90 mcg/actuation 2 puff inhalation Q4H PRN PRN 12/15/24 Unknown History aerosol inhaler wheezing bisacodyl 5 mg tablet,delayed 20 mg (4 x 5 mg) PO ONCE #4 tabs 12/15/24 12/16/24 Rx release (Dulcolax (bisacodyl)) polyethylene glycol 3350 17 238 g PO ONCE #238 grams 12/15/24 12/16/24 Rx gram/dose oral powder sodium chloride 1,000 mg soluble 1,000 mg PO BID 12/15/24 12/15/24 History tablet Allergy/AdvReac Type Severity Reaction Status Date / Time mupirocin Allergy Mild Hives Verified 12/17/24 06:08 Family History Other CVA (cerebral vascular accident) Cancer Myocardial infarction Surgical History History of cholecystectomy Social History adopted: No household members: family housing: house number of children: 0 current occupational status: employed 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 [employer]- [employer] current occupational exposures/hazards: No pets and animals: No history of recent travel: No Smoking Status: Former smoker second hand exposure: Yes alcohol intake: former substance use type: does not use seatbelt use: always do you feel safe at home: Yes ROS Constitutional Constitutional: Denies fatigue, fever(s), poor appetite, weight gain or weight loss Gastrointestinal Gastrointestinal: Denies belching, bloating, change in bowel habits, change in stool character, chewing difficulty, coffee ground emesis, constipation, cramping, diarrhea, dyspepsia, dysphagia, early satiety, excessive flatus, fecal incontinence, heartburn, hematemesis, hematochezia, hemorrhoids, loose stools, melena, nausea, odynophagia, rectal bleeding, tenesmus, vomiting or weight changes Vital Signs Vital Signs Vital Signs: 12/17/24 06:11 12/17/24 06:11 12/17/24 06:40 Temperature 97.3 F L 97.3 F L Temperature Source Temporal Pulse Rate 72 72 Respiratory Rate 18 18 Respiratory Pattern Normal Blood Pressure 117/64 117/64 Blood Pressure Mean 81 Blood Pressure Source Monitor Blood Pressure Position Semi-Fowlers Blood Pressure Location Left Arm Pulse Ox 99 99 Oxygen Delivery Method Room Air Weight Weight: 187 lb 6.287 oz Body Mass Index (BMI) 34.2 Physical Exam Const alert, oriented x3, no apparent distress and healthy appearing General Appearance: cooperative GI normal to inspection, nondistended, normoactive bowel sounds, soft to palpation, non-tender and non-distended Percussion: normal to percussion Rectal Exam: deferred Results Lab / Micro Data Labs: Laboratory Results - last 24 hr 12/17/24 05:55: Urine Test Negative Assessment & Plan Assessment/Plan (1) Abdominal pain: (2) Abnormal CT of the abdomen: PLAN: Assessment and Plan Assessment and Plan (1) Gastroesophageal reflux disease: Plan: This is a 29 yo female pt here today for evaluation of abd pain and constipation. PT has a hx of GERD w/ EGD in 2022 and on PPI, carafate and famotidine. This is well controlled. She has been having abd pain and underwent cholecystomy in May 2024. Her symptoms did not resolve following this and she continues to have abd pain. She is also having constipation. CT from August 2024 showing possible thickening of the right colon and cecum. She will undergo colonoscopy to assess this thickening. She will start Linzess 72 mcg daily and dicyclomine 10 mg BID PRN for pain. -Colonoscopy -Linzess 72 mcg daily -Dicyclomine 10 mg BID PRN -f/u after colonoscopy (2) Abdominal pain: Status: Acute (3) S/P cholecystectomy: Status: Acute Medications: New dicyclomine 10 mg PO BID 20 caps 2RF linaclotide (Linzess) 72 mcg PO QAM 60 caps 2RF
--- NOTE | 2024-12-17 07:41 | PCM.POST.ANE ---
Anesthesia: Postop Eval I Current Vital Signs Temperature: 97.9 F Pulse Rate: 60 Blood Pressure: 89/57 Respiratory Rate: 16 Pulse Ox: 98 Oxygen Delivery Method: Room Air Assessment Airway patent: Yes Spontaneous unlabored respirations: Yes Mental status: Asleep nausea: No Vomiting: No Anesthesia Complication: No Fluid Hydration Crystalloid volume administer (ml): 50 Total IV fluid infused: 50 Progress Note Anesthesia document: Postop Eval 1 completed: Yes
--- NOTE | 2024-12-17 07:42 | OP.CCLET_ITS ---
12/17/2024 Adrian Miranda Do Re : Colonoscopy procedure for Eileen Bautista Dear Ruth This procedure was performed on Tuesday, December 17, 2024. My impressions and recommendations are as follows: Impressions : - One 6 mm polyp in the cecum, removed with a cold biopsy forceps. Resected and retrieved. - Congested mucosa in the sigmoid colon and in the transverse colon. Biopsied. - The examined portion of the ileum was normal. Biopsied. Recommendations : - Discharge patient to home. - Resume previous diet. - Continue present medications. - Await pathology results. - Repeat colonoscopy in 5 years for surveillance. My findings are described in the full procedure note, which is enclosed. If I can be of further assistance, please feel free to contact me at . Sincerely, Andre Zhao, 12/17/2024 7:41:47 AM This report has been signed electronically.
--- NOTE | 2024-12-17 07:42 | OP.COLON_ITS ---
Patient Name: Eileen Bautista Procedure Date: 12/17/2024 7:10 AM Date of : 1995 Age: 29 Procedure: Colonoscopy Indications: Abnormal CT of the GI tract, Abdominal pain in the left lower quadrant, Abdominal pain in the right lower quadrant, Abdominal pain in the right upper quadrant, Incidental change in bowel habits noted, Incidental constipation noted Providers: Andre Zhao DO Medicines: Monitored Anesthesia Care Patient Profile: This is a 29 year old female. Refer to note in patient chart for documentation of history and physical. Last Colonoscopy: more than 10 years ago. Complications: No immediate complications. Procedure: Pre-Anesthesia Assessment: - Prior to the procedure, a History and Physical was performed, and patient medications and allergies were reviewed. The patient is competent. The risks and benefits of the procedure and the sedation options and risks were discussed with the patient. All questions were answered and informed consent was obtained. Patient identification and proposed procedure were verified by the physician in the pre-procedure area. Mental Status Examination: alert and oriented. Airway Examination: normal oropharyngeal airway and neck mobility. Respiratory Examination: clear to auscultation. CV Examination: normal. Prophylactic Antibiotics: The patient does not require prophylactic antibiotics. Prior Anticoagulants: The patient has taken no anticoagulant or antiplatelet agents except for NSAID medication. ASA Grade Assessment: II - A patient with mild systemic disease. After reviewing the risks and benefits, the patient was deemed in satisfactory condition to undergo the procedure. The anesthesia plan was to use monitored anesthesia care (MAC). Immediately prior to administration of medications, the patient was re-assessed for adequacy to receive sedatives. The heart rate, respiratory rate, oxygen saturations, blood pressure, adequacy of pulmonary ventilation, and response to care were monitored throughout the procedure. The physical status of the patient was re-assessed after the procedure. After I obtained informed consent, the scope was passed under direct vision. Throughout the procedure, the patient's blood pressure, pulse, and oxygen saturations were monitored continuously. The colonoscope was introduced through the anus and advanced to the terminal ileum. The colonoscopy was performed without difficulty. The patient tolerated the procedure well. The quality of the bowel preparation was adequate. The terminal ileum, ileocecal valve, appendiceal orifice, and rectum were photographed. Scope In: 7:19:58 AM Scope Withdrawal Time 0 hours 8 minutes 34 seconds Scope Out: 7:31:18 AM Total Procedure Duration Time 0 hours 11 minutes 20 seconds Findings: The perianal and digital rectal examinations were normal. A 6 mm polyp was found in the cecum. The polyp was sessile. The polyp was removed with a cold biopsy forceps. Resection and retrieval were complete. Verification of patient identification for the specimen was done. Estimated blood loss was minimal. An area of mildly congested mucosa was found in the sigmoid colon and in the transverse colon. Biopsies were taken with a cold forceps for histology. Verification of patient identification for the specimen was done. Estimated blood loss was minimal. The terminal ileum appeared normal. Biopsies were taken with a cold forceps for histology. Verification of patient identification for the specimen was done. Estimated blood loss was minimal. Impression: - One 6 mm polyp in the cecum, removed with a cold biopsy forceps. Resected and retrieved. - Congested mucosa in the sigmoid colon and in the transverse colon. Biopsied. - The examined portion of the ileum was normal. Biopsied. Recommendation: - Discharge patient to home. - Resume previous diet. - Continue present medications. - Await pathology results. - Repeat colonoscopy in 5 years for surveillance. Procedure Code(s): --- Professional --- 32280, Colonoscopy, flexible; with biopsy, single or multiple CPT copyright 2021 [employer]. All rights reserved. The codes documented in this report are preliminary and upon circle shear operator review may be revised to meet current compliance requirements. Andre Zhao DO 12/17/2024 7:41:47 AM This report has been signed electronically. Number of Addenda: 0 Note Initiated On: 12/17/2024 7:10 AM
--- NOTE | 2024-12-17 08:14 | PCM.POSTANE2 ---
Anesthesia Postop Eval I Sum Postop Eval Completion status Anesthesia document: Postop Eval 1 completed: Yes Anesthesia Postop Eval I Summary Anesthesia Postop Eval I Summary: Anesthesia Postop Eval I: Assessment Summary Airway patent Yes 12/17/24 07:42 [email or web address] Spontaneous unlabored Yes 12/17/24 07:42 [email or web address] respirations Mental status Asleep 12/17/24 07:42 [email or web address] nausea No 12/17/24 07:42 [email or web address] Vomiting No 12/17/24 07:42 [email or web address] Anesthesia Postop Eval I: Fluid Summary Crystalloid volume administer 50 12/17/24 07:42 [email or web address] (ml) Colloids volume administered ( ml) Blood Product volume administered (ml) Total IV fluid infused 50 12/17/24 07:42 [email or web address] Anesthesia Postop Eval I: Summary Notes Anesthesia Complication No 12/17/24 07:42 [email or web address] Anesthesia Complication Comment: Post-operative progress note Anesthesia: Postop Eval II Evaluation Mental status: Awake Pain Level: 0 nausea: No Vomiting: No
== END 2024-12-17 08:20 | disposition home or self-care (01) ==
LOC: EN 05:36 → AC 05:37
PROVIDERS: Anesthesiology; PCP Student in an Organized Health Care Education/Training Program; Referring Provider Student in an Organized Health Care Education/Training Program; Visit Provider Internal Medicine Gastroenterology
PROC: 0DJD8ZZ Inspection of Lower Intestinal Tract, Via Natural or Artificial Opening Endoscopic (ICD-10-PCS; CPT 45378; principal; 2024-12-17 06:55)
DX: D12.0 Benign neoplasm of cecum (principal); R10.9 Unspecified abdominal pain; K21.9 Gastro-esophageal reflux disease without esophagitis; K63.89 Other specified diseases of intestine; Z79.899 Other long term (current) drug therapy; Z87.891 Personal history of nicotine dependence; Z90.49 Acquired absence of other specified parts of digestive tract
CPT/HCPCS: 45380; 81025; 88305; A4216; J2405